=== PATIENT | male | born 1935 | race Caucasian/White ===

== ENCOUNTER 2022-01-07 11:37 | Emergency (ER) | payer OTHER, MEDICAID ==
[~2022-01-07] VITALS: Ht 180.3 cm; Wt 190.0 kg
[2022-01-07 14:45] VITALS: BP 110/74
== END 2022-01-07 15:11 | disposition home or self-care (01) ==
LOC: ER 11:37
DX: S39.012A Strain of muscle, fascia and tendon of lower back, initial encounter (principal); S09.90XA Unspecified injury of head, initial encounter; E11.9 Type 2 diabetes mellitus without complications; I10 Essential (primary) hypertension; Z86.73 Personal history of transient ischemic attack (TIA), and cerebral infarction without residual deficits; W01.0XXA Fall on same level from slipping, tripping and stumbling without subsequent striking against object, initial encounter; Y93.89 Activity, other specified; Y92.89 Other specified places as the place of occurrence of the external cause; Y99.8 Other external cause status
CPT/HCPCS: 70450; 72131; 93005